=== PATIENT | female | born 1985 | race Caucasian/White ===

== ENCOUNTER → 2018-02-10 | Outpatient (CLI) | payer OTHER ==
[~2018-02-10] MED LIST: ALPR-429 PO; AMOX500T10 PO; ETHI1TAB3 PO; FLU60SYR30 IM ONLY; GABA-549 PO; HYDR-4309 PO; LEVO-85 PO; [UNRECOGNIZED DRUG - CODE] TD
--- NOTE | 2018-02-10 13:46 | RADIOLOGY IMAGING REPORT ---
[place]AC[place] [facility] [place]IENT NAME: Anabel Schroeder : 1985 MR: [id number] V: [id number] EXAM DATE: ORDERING PHYSICIAN: ABDI ARTHUR TECHNOLOGIST: Location: [facility] Patient: Anabel Schroeder : 1985 Visit/Account:[id number] Date of Sevice: 02/10/2018 CT paranasal sinuses Indication: Sinus infection. Sinonasal polyps. Comparison: None available Technique: Axial CT images are obtained through the facial bones. Reformatted coronal and sagittal im ages were reviewed.One of the following dose optimization techniques was utilized in the performance of this exam: automated exposure control; adjustment of the mA and/or kV according to the patient's s ize; or use of an iterative reconstruction technique. Specific details can be referenced in the [facility]'s radiology CT exam operational policy. FINDINGS: Visualized mastoid air cells are clear. The bilateral ostiomeatal complexes are patent. The bilateral maxillary sinuses show no significant mucosal thickening or air-fluid levels. The ethmoid air cells are clear. The sphenoid sinuses and frontal sinuses are also clear. No air-fluid levels identified. No significant cortical thickening of the davis of the visualized paranasal sinuses. Limited views of the brain parenchyma are unremarkable as well. The bilateral orbits are intact. The pterygoid plates are intact. There is mild rightward nasal septal spurring seen. IMPRESSION: 1. Patent ostiomeatal complexes bilaterally. 2. Moderate rightward nasal septal spurring. 3. No evidence of acute sinus disease. Report Dictated By: Woo Saucedo MD at 02/10/2018 1:39 PM Report E-Signed By: Woo Saucedo MD at 02/10/2018 1:42 PM WSN:[id number]
== END ==
LOC: CT 01:31
PROVIDERS: ATTEND Internal Medicine
DX: J32.9 Chronic sinusitis, unspecified (principal); J33.9 Nasal polyp, unspecified
CPT/HCPCS: 70486

== ENCOUNTER 2018-08-08 00:43 | Day surgery (SDC) | payer OTHER ==
--- NOTE | 2018-08-03 18:34 | RADIOLOGY IMAGING REPORT ---
FACILITY: [facility] - [place] PATIENT NAME: Anabel Schroeder : 1985 MR: [id number] V: [id number] EXAM DATE: ORDERING PHYSICIAN: RUPESH ROSE TECHNOLOGIST: Location: [facility] Patient: Anabel Schroeder : 1985 Visit/Account:[id number] Date of Sevice: 07/28/2018 Study: CERVICAL SPINE 2 OR 3 VIEW Indication: Rheumatoid arthritis Comparison study: None available Findings: AP lateral & open mouth views of the cervical spine demonstrates straightening of the pita l cervical lordosis. There is no evidence of acute bony abnormality. There is no evidence of lytic or blastic bony lesions. The prevertebral soft tissues are unremarkable. There is no evidence of abnorm ality of the airway. IMPRESSION: Unremarkable exam Report Dictated By: Karson Kyle at 08/03/2018 6:22 PM Report E-Signed By: Karson Kyle at 08/03/2018 6:30 PM WSN:[id number]
--- NOTE | 2018-08-03 20:05 | RADIOLOGY IMAGING REPORT ---
FACILITY: [facility] - [place] PATIENT NAME: Anabel Schroeder : 1985 MR: [id number] V: [id number] EXAM DATE: [id number] ORDERING PHYSICIAN: SATURNINO MIRANDA TECHNOLOGIST: Location: [facility] - [place] Patient: Anabel Schroeder : 1985 Visit/Account:[id number] Date of Sevice: 08/03/2018 Study: CERVICAL SPINE MIN 4 VIEW Indication: Preop Comparison study: C-spine MRI dated April 23, 2016 Findings: AP open mouth and flexion extension neutral lateral views of the cervical spine were obtain ed. The examination demonstrates no evidence of acute bony abnormality. There is no evidence of lytic or blastic bony lesions. There is straightening of the normal cervical lordosis. There is no evidence of abnormal motion with flexion or extension. The atlantoaxial articulation is u nremarkable. The prevertebral soft tissues are unremarkable. IMPRESSION: No acute bony abnormality identified. Report Dictated By: Karson Kyle at 08/03/2018 7:58 PM Report E-Signed By: Karson Kyle at 08/03/2018 8:02 PM WSN:[id number]
[~2018-08-08] VITALS: Ht 174 cm; Wt 69.4 kg
[2018-08-08] VITALS (8 sets, daily range): BP systolic 111–131; BP diastolic 68–95
[~2018-08-08 00:43] MED LIST changes: +ARI2 PO; -HYDR-4309 PO; +HYDR-653 PO; +HYDR200T77 PO; +MELO-207 PO; +SULF500T48 PO
[2018-08-08] MEDS ORDERED: NORMOSOL R SOLN(*) 1000 ML BAG 1,000 ML IV PRN (08:45)
[2018-08-08] MEDS ORDERED: FAMOTIDINE 20 MG TAB PO ONE (08:45)
[2018-08-08] MEDS ORDERED: MIDAZOLAM 2 MG/2 ML VIAL IVP PRN (08:45)
[2018-08-08] MEDS ORDERED: LIDOCAINE/SOD BICARB 8.4% SYR ID ONE (08:45)
[2018-08-08] MEDS ORDERED: fentaNYL CITR 100 MCG/2 ML AMP ONE ×3 (10:19→12:04)
[2018-08-08] MEDS ORDERED: PROPOFOL EMUL(*) 10MG/ML 20 ML 20 ML ONE (10:19)
[2018-08-08] MEDS ORDERED: LIDOCAINE MPF 1% 5 ML VIAL ONE (10:19)
[2018-08-08] MEDS ORDERED: ceFAZolin(*) 2GM/D5W 50ML 50 ML IVPB ONE (10:25)
[2018-08-08] MEDS ORDERED: BACITRACIN OINT 15 GM TUBE TP ONE (10:45)
[2018-08-08] MEDS ORDERED: LIDO/EPI 1% MDV 1:100,000 20ML INFIL ONE (10:45)
[2018-08-08] MEDS ORDERED: OXYMETAZOLINE SPRAY 15 ML BTL ONE (10:45)
[2018-08-08] MEDS ORDERED: NS(*) 0.9% 250 ML BAG 250 ML ONE (10:46)
[2018-08-08] MEDS ORDERED: MUPIROCIN 2% OINT 22 GM TUBE TP ONE (10:46)
[2018-08-08] MEDS ORDERED: DEXAMETHASONE SOD 4 MG/ML VIAL ONE (11:04)
[2018-08-08] MEDS ORDERED: ONDANSETRON 4 MG/2 ML VIAL ONE (11:05)
[2018-08-08] MEDS ORDERED: CEFU500T10 PO (12:04)
[2018-08-08] MEDS ORDERED: HYDR-653 PO (12:04)
[2018-08-08] MEDS ORDERED: HYDR-385 PO (12:23)
[2018-08-08] MEDS ORDERED: APAP/HYDROCODONE 325/5 TAB PO PRN (13:10)
--- NOTE | 2018-08-09 00:42 | OPERATIVE REPORT 1 ---
EVENT DATE: August 08, 2018 SURGEON: Taiwo Root Jr., MD ANESTHESIOLOGIST: Dallin Garces MD ANESTHESIA: LMA. PREOPERATIVE DIAGNOSIS 1. Nasoseptal deviation. 2. Bilateral inferior turbinate hypertrophy. POSTOPERATIVE DIAGNOSIS 1. Nasoseptal deviation. 2. Bilateral inferior turbinate hypertrophy. PROCEDURE PERFORMED 1. Septoplasty. 2. Submucous resection of the bilateral inferior turbinates. ESTIMATED BLOOD LOSS 25 mL. COMPLICATIONS None. INDICATIONS Please refer to the preoperative note. DESCRIPTION OF PROCEDURE The patient was positively identified in the preoperative area. She was accompanied there by her significant other. Risks were again explained, including but not limited to bleeding, infection, nasoseptal perforation and those associated with anesthesia. She acknowledged understanding of those risks. She was then brought back to the operative suite, laid supine on the operative table and anesthesia was administered. Once asleep, the patient was positioned and then prepped and draped in the usual sterile fashion. I initially decongested the nose by injecting approximately 10 mL of 1% lidocaine with epinephrine into the bilateral anterior nasoseptal mucosa and along the face of the bilateral inferior turbinates. Both nasal cavities were subsequently packed with cottonoids containing Afrin solution. These were subsequently removed and nasal endoscopy was performed. This was notable for a rightward septal deviation. A Shaji incision was then made into the left anterior nasoseptal mucosa. A subperichondrial flap was elevated. An incision was then made into the anterior nasoseptal cartilage. A contralateral flap was raised. The deviated portion of patient's nasoseptal cartilage and bone was then removed. The Shaji incision was then reapproximated with an interrupted chromic stitch. The inferior turbinates were then addressed. A stab incision was made at the face of the left inferior turbinate. A Meghana elevator was utilized to elevate the mucosa off the underlying bone. A submucous resection was then performed with the turbinate blade of the microdebrider. The stab incision was then cauterized with suction Bovie electrocautery. The contralateral inferior turbinate was addressed in a similar fashion. Bilateral nasoseptal splints were then placed and secured to the columella with a suture. The patient was then turned to Anesthesia for emergence. LIYA
== END 2018-08-08 12:47 | disposition home or self-care (01) ==
LOC: OR 00:43
PROVIDERS: ATTEND Otolaryngology
DX: J34.2 Deviated nasal septum (principal); J34.3 Hypertrophy of nasal turbinates
CPT/HCPCS: 30140; 30520; 72050; 81025; J1100; J2001; J2405; J2704; J3010; J7050; 72040; J0690

== ENCOUNTER 2018-08-08 20:34 | Emergency (ER) | payer OTHER ==
[~2018-08-08 20:34] MED LIST changes: +CEFU500T10 PO; +HYDR-385 PO
--- NOTE | 2018-08-08 20:57 | ER Report ---
History and Physical Time Seen By MD: 20:56 Hx. of Stated Complaint: heart rate of 105-120 while laying in bed. tingling in left hand HPI/ROS CHIEF COMPLAINT: heart racing HISTORY OF PRESENT ILLNESS: This is a 33 year old female. When trying to go to sleep tonight, had racing of her heart. No chest pain. No shortness of breath at the time. Had septoplasty surgery today, Dr. Root. No complications. Pain 5 on a 1-10 scale right now from her surgery. Took one of the hydrocodone earlier this afternoon. No nausea or vomiting. No dizziness. No history of thyroid problems in the past. No history of heart problems. No fevers or cough. She is on Cefuroxime. Allergies: Coded Allergies: fluoxetine (Verified Allergy, Mild, 08/08/18) Uncoded Allergies: cats (Allergy, Intermediate, 01/01/17) mites (Allergy, Intermediate, 01/01/17) Home Meds Reported Medications Hydrocodone Bit/Acetaminophen (HYDROCODON-ACETAMINOPHEN 5-325) 1 Each Tablet, 1- 2 EACH PO Q6H PRN for PAIN, #30 TAB 08/08/18 Hydrocodone Bit/Acetaminophen (NORCO 5-325 TABLET) 1 Each Tablet, 1-2 EACH PO Q6H for PAIN, #30 TAB 08/08/18 Cefuroxime Axetil (CEFUROXIME) 500 Mg Tablet, 500 MG PO BID for 7 Days, #14 TAB 08/08/18 Sulfasalazine (SULFASALAZINE) 500 Mg Tablet, 500 MG PO 07/21/18 Hydroxychloroquine Sulfate (PLAQUENIL) 200 Mg Tablet, 200 MG PO QDAY 07/21/18 Gabapentin (GABAPENTIN) 300 Mg Capsule, 300 MG PO TID, CAPSULE 07/21/18 Meloxicam (MELOXICAM) 15 Mg Tablet, 15 MG PO QDAY 07/21/18 Selegiline (EMSAM) 1 Each Patch.td24, 1 EACH TD DAILY 03/28/16 Ethinyl Estradiol/Drospirenone (ALVINA 28 TABLET) 1 Each Tablet, 1 EACH PO QDAY, TAB 03/28/16 Discontinued Reported Medications Aripiprazole (ABILIFY) 2 Mg Tablet, 2 MG PO QDAY, TAB 07/21/18 Reviewed Nurses Notes: Yes Hx Smoking: No Smoking Status: Never Smoker Hx Substance Use Disorder: No Hx Alcohol Use: No Constitutional Vital Sign - Last 24 Hours 08/08/18 08/08/18 08/08/18 08/08/18 20:34 20:38 20:39 21:00 Temp 98.5 Pulse ??? 79 Resp 16 B/P (MAP) 125/79 125/79 (94) 124/76 (92) Pulse Ox 96 O2 Delivery Room Air 08/08/18 08/08/18 08/08/18 08/08/18 21:04 21:30 21:34 22:00 Pulse 95 93 Resp 8 9 B/P (MAP) 118/71 (87) 125/78 (94) Pulse Ox 97 99 08/08/18 08/08/18 08/08/18 08/08/18 22:04 22:30 22:34 23:00 Pulse 98 102 Resp 9 11 B/P (MAP) 109/75 (86) 114/74 (87) Pulse Ox 100 92 08/08/18 23:04 Pulse 94 Pulse Ox 98 Physical Exam General Appearance: The patient is alert. No acute distress, but is a little anxious. Eyes: Pupils are equal, round. Reactive to light. No pallor, injection or icterus. Extraocular movements are intact. ENT: Mucous membranes are moist. Normal oral mucosa. Posterior oropharynx is normal. Bandage over her nose, clean, dry and intact. Neck: Supple and non tender. No thyromegaly or nodules. Respiratory: Lungs are clear to auscultation. Cardiovascular: Regular rate and rhythm. No murmurs, gallops or rubs. Normal capillary refill. No edema. Gastrointestinal: Abdomen is soft and non tender. Nondistended. Normal active bowel sounds. Neurological: Alert and oriented x3. Cranial nerves II through XII show no acute deficits on my exam. No focal neurologic deficits in the extremities. Skin: Warm and dry. Musculoskeletal: Extremities are nontender. No tenderness in palpation of the cervical, thoracic and lumbar spine. DIFFERENTIAL DIAGNOSIS: After history and physical exam, differential diagnosis was considered for tachycardia, uncertain etiology, we'll check electrolytes and fluid status. Consider side effect from anesthesia earlier today, and stress on her system with the surgery today. Medical Decision Making Data Points Result Diagram: 08/08/18204908/08/182049 Laboratory Hematology Test 08/08/18 20:50 Red Blood Count 4.28 M/uL (4.17-5.56) Mean Corpuscular Volume 93.3 fL (80.0-96.0) Mean Corpuscular Hemoglobin 31.1 pg (26.0-33.0) Mean Corpuscular Hemoglobin Concent 33.4 g/dL (32.0-36.0) Red Cell Distribution Width 12.9 % (11.5-14.5) Mean Platelet Volume 8.6 fL (7.2-11.1) Neutrophils (%) (Auto) 86.8 % (39.4-72.5) Lymphocytes (%) (Auto) 7.7 % (17.6-49.6) Monocytes (%) (Auto) 5.4 % (4.1-12.4) Eosinophils (%) (Auto) 0.0 % (0.4-6.7) Basophils (%) (Auto) 0.1 % (0.3-1.4) Nucleated RBC Relative Count (auto) 0.0 /100WBC Neutrophils # (Auto) 7.1 K/uL (2.0-7.4) Lymphocytes # (Auto) 0.6 K/uL (1.3-3.6) Monocytes # (Auto) 0.4 K/uL (0.3-1.0) Eosinophils # (Auto) 0.0 K/uL (0.0-0.5) Basophils # (Auto) 0.0 K/uL (0.0-0.1) Nucleated RBC Absolute Count (auto) 0.00 K/uL Sodium Level 136 mmol/L (137-145) Potassium Level 4.2 mmol/L (3.5-5.0) Chloride Level 100 mmol/L (98-107) Carbon Dioxide Level 26 mmol/L (22-31) Blood Urea Nitrogen 9 mg/dl (7-18) Creatinine 0.70 mg/dl (0.52-1.04) Glomerular Filtration Rate Calc > 60.0 Random Glucose 145 mg/dl (75-110) Calcium Level 8.7 mg/dl (8.4-10.2) Total Bilirubin 0.3 mg/dl (0.2-1.3) Aspartate Amino Transf (AST/SGOT) 27 U/L (0-35) Alanine Aminotransferase (ALT/SGPT) 36 U/L (0-56) Alkaline Phosphatase 57 U/L (0-126) Troponin I < 0.012 ng/ml Total Protein 6.8 g/dl (6.3-8.2) Albumin 3.9 g/dl (3.5-5.0) Chemistry Test 08/08/18 20:50 White Blood Count 8.1 k/uL (4.5-11.0) Red Blood Count 4.28 M/uL (4.17-5.56) Hemoglobin 13.3 g/dL (12.0-16.0) Hematocrit 39.9 % (34.0-47.0) Mean Corpuscular Volume 93.3 fL (80.0-96.0) Mean Corpuscular Hemoglobin 31.1 pg (26.0-33.0) Mean Corpuscular Hemoglobin Concent 33.4 g/dL (32.0-36.0) Red Cell Distribution Width 12.9 % (11.5-14.5) Platelet Count 201 K/uL (150-450) Mean Platelet Volume 8.6 fL (7.2-11.1) Neutrophils (%) (Auto) 86.8 % (39.4-72.5) Lymphocytes (%) (Auto) 7.7 % (17.6-49.6) Monocytes (%) (Auto) 5.4 % (4.1-12.4) Eosinophils (%) (Auto) 0.0 % (0.4-6.7) Basophils (%) (Auto) 0.1 % (0.3-1.4) Nucleated RBC Relative Count (auto) 0.0 /100WBC Neutrophils # (Auto) 7.1 K/uL (2.0-7.4) Lymphocytes # (Auto) 0.6 K/uL (1.3-3.6) Monocytes # (Auto) 0.4 K/uL (0.3-1.0) Eosinophils # (Auto) 0.0 K/uL (0.0-0.5) Basophils # (Auto) 0.0 K/uL (0.0-0.1) Nucleated RBC Absolute Count (auto) 0.00 K/uL Glomerular Filtration Rate Calc > 60.0 Calcium Level 8.7 mg/dl (8.4-10.2) Total Bilirubin 0.3 mg/dl (0.2-1.3) Aspartate Amino Transf (AST/SGOT) 27 U/L (0-35) Alanine Aminotransferase (ALT/SGPT) 36 U/L (0-56) Alkaline Phosphatase 57 U/L (0-126) Troponin I < 0.012 ng/ml Total Protein 6.8 g/dl (6.3-8.2) Albumin 3.9 g/dl (3.5-5.0) EKG/Imaging EKG Interpretation 12 lead EKG: Rhythm: normal sinus rhythm, rate 70 Marilla: normal QRS: Incomplete right bundle branch block ST segments: Nonspecific, no ST elevation or depression Imaging CHEST SINGLE AP Indication: Heart racing.. Comparison: 01/01/2017. Findings: Cardiomediastinal silhouette and pulmonary vessels within normal limits. There is no focal infiltrate or lobar consolidation. No pneumothorax or pleural effusion. No nodule. Mild increased interstitial changes. Upper abdomen is unremarkable. No acute bony abnormality. IMPRESSION: 1. There is mild increased interstitial opacities. There is no focal infiltrate. These opacities could be secondary to mild edema or interstitial pneumonitis. Report Dictated By: Octavio Winter at 08/08/2018 9:44 PM ED Course/Re-evaluation Clinical Indication for ER IV: Hydration, IV Access ED Course Labs, EKG, Imaging negative. Reviewed all this with the patient. Gave Hydromorphone 0.25mg IV for pain, Zofran 4mg IV for nausea. Decision to Disposition Date: Aug 08, 2018 Decision to Disposition Time: 23:14 Depart Departure Latest Vital Signs Vital Signs Date Time Temp Pulse Resp B/P (MAP) Pulse Ox O2 Delivery O2 Flow Rate FiO2 08/08/18 23:04 94 98 08/08/18 23:00 114/74 (87) 08/08/18 22:34 11 08/08/18 20:38 98.5 Room Air Impression: Primary Impression: Racing heart beat Condition: Improved Disposition: HOME OR SELF-CARE Referrals: ROLDAN PUGH (PCP) Patient Instructions: Atrial Tachycardia (ED) Additional Instructions: We did not find a specific cause for your racing heart beat tonight. If this were to continue happening, we would consider having you wear a heart monitor for a few days to try and see what the rhythm is when it is happening. vital signs and labs and EKG were all normal here tonight. We suspect that this was a combination of the stress from surgery as well as possible side effects of medication from anesthesia. Rest, continue to take your pain medications as needed, and increase fluid intake. KYA GUTIERREZ MD Aug 08, 2018 20:57
[2018-08-08] MEDS ORDERED: NS(*) 0.9% 1000 ML BAG 1,000 ML IV ONE (21:05)
[2018-08-08 21:15] LABS: PLATELET COUNT, AUTOMATED 201 K/uL (150-450)
--- NOTE | 2018-08-08 21:51 | RADIOLOGY IMAGING REPORT ---
FACILITY: [facility] PATIENT NAME: Anabel Schroeder : 1985 MR: [id number] V: [id number] EXAM DATE: ORDERING PHYSICIAN: KAY GUTIERREZ TECHNOLOGIST: Location: [facility] Patient: Anabel Schroeder : 1985 Visit/Account:[id number] Date of Sevice: 08/08/2018 CHEST SINGLE AP Indication: Heart racing.. Comparison: 01/01/2017. Findings: Cardiomediastinal silhouette and pulmonary vessels within normal limits. There is no focal infiltrate or lobar consolidation. No pneumothorax or pleural effusion. No nodule. Mild increased interstitial changes. Upper abdomen is unremarkable. No acute bony abnormal ity. IMPRESSION: 1. There is mild increased interstitial opacities. There is no focal infiltrate. These opacities coul d be secondary to mild edema or interstitial pneumonitis. Report Dictated By: Octavio Winter at 08/08/2018 9:44 PM Report E-Signed By: Octavio Winter at 08/08/2018 9:48 PM WSN:[id number]
--- NOTE | 2018-08-08 22:29 | EKG ---
FACILITY: [facility] - [place] PATIENT NAME: AKUA GALLAGHER : [id number] MR: [id number] V: [id number] EXAM DATE: ORDERING PHYSICIAN: KAY GUTIERREZ TECHNOLOGIST: YOLETTE Rice Reason : CARDIAC Blood Pressure : / mmHG Vent. Rate : 070 BPM Atrial Rate : 070 BPM P-R Int : 150 ms QRS Dur : 110 ms QT Int : 380 ms P-R-T Axes : 080 082 070 degrees QTc Int : 410 ms Sinus rhythm Possible biatrial enlargement Incomplete right bundle branch block Nonspecific ST-T findings anteriorly Abnormal ECG Confirmed by SONY CARROLL ([id number]) on 08/09/2018 4:44:30 AM Referred By: Confirmed By:SONY CARROLL
[2018-08-08 23:00] VITALS: BP 114/74
[2018-08-08] MEDS ORDERED: HYDROMORPHONE HCL 1 MG/ML SYRINGE IVP ONE (23:05)
[2018-08-08] MEDS ORDERED: ONDANSETRON 4 MG/2 ML VIAL IVP ONE (23:05)
== END 2018-08-08 23:31 | disposition home or self-care (01) ==
LOC: ER 20:57
DX: R00.0 Tachycardia, unspecified (principal); R94.31 Abnormal electrocardiogram [ECG] [EKG]
CPT/HCPCS: 71045; 84443; 84484; 85025; 93005; 96361; 96374; 96375; 99284; J1170; J2405; J7030; 82040; 82247; 82310; 82374; 82435; 82565; 82947; 84075; 84132; 84155; 84295; 84450; 84460; 84520